=== PATIENT | male | born 1930 | race Caucasian/White ===

== ENCOUNTER 2017-06-18 08:00 | Day surgery (SDC) | payer MEDICARE, OTHER ==
[~2017-06-18] VITALS: Ht 180.3 cm; Wt 77.1 kg
--- NOTE | ~2017-06-18 | EGD ---
EGD REPORT [facility] [address] [place] [address] NAME: DIPAK VELA : 32 STATUS : [place] [facility] [place] PAT#: [id number] AGE: 87 ADM/REG DATE : 06/18/17 MR#: [id number] REPORT SERV DATE: 06/18/17 DICTATED BY: INGRID SHULTZ DATE: 06/18/17 REPORT STATUS : Draft [facility]ANS[facility]IB[facility] BY: [facility] DATE: 06/18/17 Endoscopy Center Patient Name: Dipak Vela Date of : 1930 Attending MD: INGRID SHULTZ MD Procedure Date No Time: 06/18/2017 Procedure: Colonoscopy Indications: FH of Colon Cancer - 1st degree relative, Constipation Referring MD: DEV MARTIN MD Medicines: as per anesthesia Complications: No immediate complications. Procedure: After I obtained informed consent, the scope was passed under direct vision. Throughout the procedure, the patient's blood pressure, pulse, and oxygen saturations were monitored continuously. The PCF [id number] was introduced through the anus and advanced to the sigmoid colon. The colonoscopy was technically difficult and complex due to restricted mobility of the colon and a tortuous colon. The patient tolerated the procedure. The quality of the bowel preparation was fair. Findings: The perianal and digital rectal examinations were normal. A sessile polyp was found in the rectum. The polyp was 7 mm in size. The polyp was removed with a cold biopsy forceps. Resection and retrieval were complete. Internal hemorrhoids were found during endoscopy and were moderate. sharp angle at 50cm scope would not pass A few small and large-mouthed diverticula were found in the sigmoid colon. Impression: - One 7 mm polyp in the rectum. Resected and retrieved. - Internal hemorrhoids. - Diverticulosis in the sigmoid colon. Recommendation: - Await pathology results. - Perform an air contrast barium enema. Procedure Code(s): --- Professional --- 79186, 52, Colonoscopy, flexible, proximal to splenic flexure; with biopsy, single or multiple Diagnosis Code(s): --- Professional --- K62.1, Rectal polyp K64.8, Other hemorrhoids [address] [address] NAME: DIPAK VELA : 32 STATUS : [facility] [place] PAT#: [id number] AGE: 87 ADM/REG DATE : 06/18/17 MR#: [id number] REPORT SERV DATE: 06/18/17 DICTATED BY: INGRID SHULTZ. DATE: 06/18/17 REPORT STATUS : Draft TRANSCRIBED BY: [employer] DATE: 06/18/17 K57.30, Diverticulosis of large intestine without perforation or abscess without bleeding Z80.0, Family history of malignant neoplasm of digestive organs K59.00, Constipation, unspecified CPT copyright 2013 [employer]. All rights reserved. The codes documented in this report are preliminary and upon termite treater helper review may be revised to meet current compliance requirements. INGRID SHULTZ MD 06/18/2017 11:10 AM This report has been signed electronically. Number of Addenda: 0 Note Initiated On: 06/18/2017 10:29 AM Scope Withdrawal Time 0 hours 0 minutes 0 seconds [address] [place] [address]
[~2017-06-18 08:00] MED LIST: ASAB PO; B121000P IM; B12100T PO; CYANO1000T PO; KLOR-CON 1010 MEQ PO; MAX25 PO; ZESTORETIC PO
== END 2017-06-18 23:59 | disposition home or self-care (01) ==
LOC: DMU 08:00
PROVIDERS: Internal Medicine Gastroenterology
PROC: 0DBP8ZZ Excision of Rectum, Via Natural or Artificial Opening Endoscopic (ICD-10-PCS; principal; 2017-06-18 09:30)
DX: Z12.11 Encounter for screening for malignant neoplasm of colon (principal); D12.8 Benign neoplasm of rectum; K64.8 Other hemorrhoids; K57.30 Diverticulosis of large intestine without perforation or abscess without bleeding; H26.9 Unspecified cataract; I71.4 Abdominal aortic aneurysm, without rupture; Z85.46 Personal history of malignant neoplasm of prostate; Z80.0 Family history of malignant neoplasm of digestive organs; Z79.82 Long term (current) use of aspirin; Z79.899 Other long term (current) drug therapy
CPT/HCPCS: 88305